=== PATIENT | female | born 1960 | race Caucasian/White ===

== ENCOUNTER → 2017-03-19 | Outpatient (CLI) | payer MEDICAID ==
[~2017-03-19] MED LIST: OMNIPAQUE 350 MG/ML, 75ML BOTTLE ONE
== END | disposition home or self-care (01) ==
LOC: CFH 12:32
PROVIDERS: ATTEND Internal Medicine
DX: K76.0 Fatty (change of) liver, not elsewhere classified (principal); M47.892 Other spondylosis, cervical region; G47.36 Sleep related hypoventilation in conditions classified elsewhere; Z90.49 Acquired absence of other specified parts of digestive tract
CPT/HCPCS: 71260; 82565; Q9967

== ENCOUNTER → 2019-08-14 | Outpatient (CLI) | payer MEDICAID | END | disposition home or self-care (01) | LOC: CFH 07:10 | PROVIDERS: ATTEND Internal Medicine Cardiovascular Disease | DX: I08.1 Rheumatic disorders of both mitral and tricuspid valves (principal); E78.00 Pure hypercholesterolemia, unspecified; R06.02 Shortness of breath; Z82.49 Family history of ischemic heart disease and other diseases of the circulatory system | CPT/HCPCS: 75571; 78452; 93017; 93306; A9502 ==